=== PATIENT | male | born 1945 | race Caucasian/White ===

== ENCOUNTER → 2022-11-01 15:14 | Outpatient (CLI) | payer OTHER, SELFPAY ==
--- NOTE | 2022-11-01 | DI.ECHO.S_ITS ---
[facility] +---------+ : : [address] : [address] [address] : : : : [id number] : : : : Phone: [phone]---------+ Echocardiogram Report + + :Name: NILAM ADLER Study Date: 11/01/2022 Height: 71 in : :[facility] ReadingLocation: Weight: 234 lb : : Gender: Male BSA: 2.3 m2 : :: 1945 Age: 77 yrs BP: 141/85 mmHg: :Reason For Study: HEART FAILURE HR: 65 : :Ordering Physician: BENJA, : :ADOLFO Performed By: CARMEN CASTILLO : :Referring: ADOLFO YOUSIF : + + Interpretation Summary Technically difficult study and suboptimal images were obtained. Mild concentric left ventricular hypertrophy with ejection fraction 50-55%. Endocardium is not well visualized. Contrast echo should be performed in the future study. Probable anterior wall and septum hypokinesis. The right ventricle is moderately dilated. Right ventricular systolic function is moderate to severely reduced. The right atrium is severely dilated. The aortic valve is slightly calcified. Moderate tricuspid regurgitation. Severe pulmonary hypertension. The right ventricular systolic pressure is estimated to be at least 69 mmHg based on an estimated right atrial pressure of 8 mm Hg. Procedure: A two-dimensional transthoracic echocardiogram with color flow and Doppler was performed. The study quality was technically difficult. There is no prior echocardiogram noted for this patient. The patient was in atrial flutter during the exam. Left Ventricle: The left ventricle is normal in size. There is mild concentric left ventricular hypertrophy. The ejection fraction is estimated to be 50-55%. There is anterior wall hypokinesis. There is septal wall hypokinesis. Right Ventricle: The right ventricle is moderately dilated. Right ventricular systolic function is moderate to severely reduced. Atria: The left atrial size is normal. The right atrium is severely dilated. Mitral Valve: The mitral valve leaflets appear normal. There is no evidence of stenosis, fluttering, or prolapse. There is trace mitral regurgitation. Aortic Valve: The aortic valve is trileaflet. The aortic valve is slightly calcified. There is no aortic valve stenosis. No aortic regurgitation is present. Tricuspid Valve: The tricuspid annulus is dilated. There is moderate tricuspid regurgitation. The right ventricular systolic pressure is estimated to be at least 69 mmHg based on an estimated right atrial pressure of 8 mm Hg. There is severe pulmonary hypertension. Pulmonic Valve: The pulmonic valve is not well visualized. There is trace pulmonic regurgitation. Great Vessels: The aortic root is mildly dilated. The ascending aorta could not be visualized. The IVC is dilated (diameter is greater than 2.1 cm) yet it collapses greater than 50% with a sniff. This suggests a right atrial pressure of 8 mm Hg. Pericardium/ Pleura There is no pericardial effusion. There is no pleural effusion. MMode/2D Measurements & Calculations LVIDd: 5.2 cm LVOT diam: 2.0 cm LVIDs: 4.1 cm Ao root diam: 3.9 cm FS: 21.2 % IVSd: 1.1 cm LVPWd: 1.1 cm LV butler. diameter/BSA (cm/m^2): 2.3 LV sys. diameter/BSA (cm/m^2): 1.8 LA A2 area: 17.8 cm2 RA long axis: 6.9 cm LA A4 area: 20.4 cm2 LA length (vol): 6.1 cm LA vol: 50.4 ml LA vol index: 22.3 ml/m2 LVLs ap4: 7.0 cm LVLd ap2: 7.3 cm LVLs ap2: 6.5 cm Doppler Measurements & Calculations Ao V2 max: 118.0 cm/sec LVOT Max Marco Antonio: 87.5 cm/sec Ao V2 mean: 87.9 cm/sec LV V1 max P.1 mmHg Ao max P.0 mmHg LV V1 VTI: 15.9 cm Ao mean P.0 mmHg LION(I,D): 2.3 cm2 Ao V2 VTI: 21.6 cm LION(V,D): 2.3 cm2 sev ratio: 0.74 LION indexed to BSA (cm^2/m^2): 1.0 MV E max marco antonio: 65.6 cm/sec TR max marco antonio: 371.0 cm/sec MV A max marco antonio: 56.6 cm/sec TR max P.1 mmHg MV E/A: 1.2 PA pr(Accel): 42.5 mmHg Med Peak E' Marco Antonio: 4.5 cm/sec E/E' med: 14.4 MV dec time: 0.19 sec SV(LVOT): 50.0 ml AV VR_phl: 0.74 LION(VTI)/BSA_phl: 1.0 MV P1/2t-pr_phl: 55.0 msec Electronically signed by: Tawanna Madera on Reading Physician:11/02/2022 09:30 AM
== END ==
PROVIDERS: Referring Provider Family Medicine; Visit Provider Family Medicine
DX: I07.1 Rheumatic tricuspid insufficiency (principal); I27.20 Pulmonary hypertension, unspecified; I77.810 Thoracic aortic ectasia; I50.9 Heart failure, unspecified
CPT/HCPCS: 93306